=== PATIENT | female | born 1945 | race Caucasian/White ===

== ENCOUNTER 2021-05-14 16:24 | Inpatient (IN) | payer OTHER ==
[~2021-05-14] VITALS: Ht 167.6 cm; Wt 99.7 kg
[2021-05-14 18:09] LABS: Basophils # (auto) 0.1 10 ^3/uL (0-0.2); Basophils % (auto) 0.9 % (0.0-2.0); Eosinophils # (auto) 0.2 10 ^3/uL (0-0.8); Hematocrit 43.7 % (36.0-46.0); Hemoglobin 14.4 g/dL (12.2-16.2); Lymphocytes # (auto) 1.8 10 ^3/uL (0.4-5.4); Lymphocytes % (auto) 23.6 % (10.0-50.0); Mean Corpuscular Hemoglobin 31.5 pg (28.0-32.0); Mean Corpuscular Volume 95.6 fL (80.0-100.0); Monocytes # (auto) 0.9 10 ^3/uL (0-1.3); Neutrophils # (auto) 4.6 10 ^3/uL (1.6-8.6); Neutrophils % (auto) 61.5 % (37.0-80.0); Nucleated Red Blood Cells % 0.2 %; Red Blood Cells 4.57 10^6/uL (4.0-5.20); Red Cell Distribution Width 13.4 % (11.8-14.3); White Blood Cell 7.5 10^3/uL (4.4-10.8)
[2021-05-14 18:33] LABS: Albumin 3.6 g/dL (3.4-5.0); BUN/Creatinine Ratio 21.4; Calcium 9.7 mg/dL (8.5-10.1); Potassium 4.8 mmol/L (3.5-5.1)
[2021-05-14 18:36] LABS: Bilirubin, Total 0.9 mg/dL (0.2-1.0); Total Protein 6.9 g/dL (6.4-8.2)
[2021-05-14] MEDS ORDERED: ONDANSETRON HCL 4 MG/2 ML VIAL IV PRN (21:30)
[2021-05-14] MEDS ORDERED: NITROGLYCERIN 0.4 MG SL TAB SL PRN (21:30)
[2021-05-14] MEDS ORDERED: SOD CHL 0.45% 1,000 ML IV ONE (21:30)
[2021-05-14] MEDS ORDERED: MORPHINE SULFATE INJECTION 2 MG/ML SYRG IV PRN (21:30)
[2021-05-14 23:30] VITALS: BP 122/59
[2021-05-15] MEDS: MORPHINE SULFATE INJECTION 2 MG/ML SYRG IV PRN ×4 (01:59→21:27)
[2021-05-15 05:50] VITALS: BP 145/75
[2021-05-15] MEDS ORDERED: ATOR20TA PO (05:56)
[2021-05-15 06:23] LABS: Basophils # (auto) 0.1 10 ^3/uL (0-0.2); Basophils % (auto) 0.7 % (0.0-2.0); Eosinophils # (auto) 0.2 10 ^3/uL (0-0.8); Eosinophils % (auto) 2.4 % (0.0-7.0); Hematocrit 40.4 % (36.0-46.0); Hemoglobin 13.5 g/dL (12.2-16.2); Lymphocytes # (auto) 1.8 10 ^3/uL (0.4-5.4); Lymphocytes % (auto) 23.6 % (10.0-50.0); Mean Corpuscular Hgb Conc. 33.5 g/dL (32.0-36.0); Mean Corpuscular Volume 95.5 fL (80.0-100.0); Monocytes % (auto) 12.7 % (0.0-12.0); Neutrophils # (auto) 4.7 10 ^3/uL (1.6-8.6); Neutrophils % (auto) 60.6 % (37.0-80.0); Red Blood Cells 4.23 10^6/uL (4.0-5.20); Red Cell Distribution Width 13.3 % (11.8-14.3); White Blood Cell 7.7 10^3/uL (4.4-10.8)
[2021-05-15 06:50] LABS: INR 1.03 (0.9-1.15)
[2021-05-15 07:14] LABS: Potassium 4.1 mmol/L (3.5-5.1)
[2021-05-15 07:24] LABS: Albumin 3.1 g/dL (3.4-5.0); BUN/Creatinine Ratio 26.9; Bilirubin, Total 0.7 mg/dL (0.2-1.0); Calcium 9.4 mg/dL (8.5-10.1); Total Protein 6.1 g/dL (6.4-8.2)
[2021-05-15 09:07] VITALS: BP 132/76
[2021-05-15] MEDS: ENOXAPARIN SOD 40 MG/0.4 ML SYRINGE SC SCH (10:00)
[2021-05-15 12:34] VITALS: BP 129/77
[2021-05-15] MEDS: ceFAZolin 2 GM in D5W 5% 100 ML IV SCH ×2 (15:10→21:26)
[2021-05-15 17:22] VITALS: BP 107/62
[2021-05-15] MEDS: SODIUM CHLORIDE 0.9% 1,000 ML IV SCH (19:30)
[2021-05-15 21:30] VITALS: BP 137/87
[2021-05-16] VITALS (13 sets, daily range): BP systolic 116–154; BP diastolic 64–88
[2021-05-16] MEDS: SODIUM CHLORIDE 0.9% 1,000 ML IV SCH (00:54)
[2021-05-16] MEDS: ceFAZolin 2 GM in D5W 5% 100 ML IV SCH ×3 (04:46→21:39)
[2021-05-16] MEDS: MORPHINE SULFATE INJECTION 2 MG/ML SYRG IV PRN (04:47)
[2021-05-16] MEDS ORDERED: fentaNYL CITRATE 100 MCG/2 ML VL ONE (09:54)
[2021-05-16] MEDS ORDERED: MIDAZOLAM HCL 2MG/2ML 2ml VIAL (1mg/ml) ONE ×2 (09:54→11:11)
[2021-05-16] MEDS ORDERED: GLYCOPYRROLATE 0.2 MG/ML 1ML VIAL ONE (09:55)
[2021-05-16] MEDS ORDERED: ePHEDrine SULFATE 50 MG/ML AMP ONE (09:55)
[2021-05-16] MEDS ORDERED: ONDANSETRON HCL 4 MG/2 ML VIAL ONE (09:55)
[2021-05-16] MEDS ORDERED: PROPOFOL 10 MG/ML 20 ML IV ONE (09:55)
[2021-05-16] MEDS: ENOXAPARIN SOD 40 MG/0.4 ML SYRINGE SC SCH (10:00)
[2021-05-16] MEDS ORDERED: HYDROCORTISONE SOD SUCC 100 MG/2ML INJ VIAL ONE (10:31)
[2021-05-16] MEDS ORDERED: MORPHINE SULF PF 2 MG/2 ML SYRG ONE (10:31)
[2021-05-16] MEDS ORDERED: TETRACAINE 1% INJ 2 ML VIAL IJ ONE (10:37)
[2021-05-16] MEDS ORDERED: KETOROLAC TROMETH 30 MG/ML 1ML VIAL IV ONE (12:15)
[2021-05-16] MEDS ORDERED: KETOROLAC TROMETH 30 MG/ML 1ML VIAL IV PRN (12:15)
[2021-05-16] MEDS ORDERED: diphenhdrAMINE HCL 50 MG/1 ML VL IV PRN (12:15)
[2021-05-16] MEDS ORDERED: DexAMETHasone SOD PHOS 10MG/1ML VIAL INJ IV PRN (12:15)
[2021-05-16] MEDS ORDERED: ONDANSETRON HCL 4 MG/2 ML VIAL IV PRN ×2 (12:15)
[2021-05-16] MEDS ORDERED: NALOXONE HCL 0.4 MG/ML VIAL IV PRN (12:15)
[2021-05-16] MEDS: hydrALAZINE HCL 20 MG/ML VL IV PRN (13:00)
[2021-05-16] MEDS: HYDROcodone-ACET 5/325MG TAB PO PRN (23:43)
[2021-05-17] VITALS (13 sets, daily range): BP systolic 120–182; BP diastolic 69–97
[2021-05-17] MEDS: hydrALAZINE HCL 20 MG/ML VL IV PRN (04:10)
[2021-05-17] MEDS: HYDROcodone-ACET 5/325MG TAB PO PRN (04:13)
[2021-05-17] MEDS: ceFAZolin 2 GM in D5W 5% 100 ML IV SCH ×2 (05:20→14:00)
[2021-05-17 10:11] LABS: Basophils # (auto) 0 10 ^3/uL (0-0.2); Basophils % (auto) 0.2 % (0.0-2.0); Eosinophils # (auto) 0 10 ^3/uL (0-0.8); Eosinophils % (auto) 0.2 % (0.0-7.0); Hemoglobin 13.2 g/dL (12.2-16.2); Lymphocytes % (auto) 7.1 % (10.0-50.0); Mean Corpuscular Hemoglobin 31.2 pg (28.0-32.0); Mean Corpuscular Hgb Conc. 32.3 g/dL (32.0-36.0); Mean Corpuscular Volume 96.7 fL (80.0-100.0); Monocytes # (auto) 1.3 10 ^3/uL (0-1.3); Monocytes % (auto) 9.8 % (0.0-12.0); Neutrophils # (auto) 11.4 10 ^3/uL (1.6-8.6); Neutrophils % (auto) 82.7 % (37.0-80.0); Red Blood Cells 4.24 10^6/uL (4.0-5.20); Red Cell Distribution Width 13.6 % (11.8-14.3); White Blood Cell 13.8 10^3/uL (4.4-10.8)
[2021-05-17 10:30] LABS: Albumin 3.2 g/dL (3.4-5.0); Calcium 8.8 mg/dL (8.5-10.1); Potassium 4.3 mmol/L (3.5-5.1)
[2021-05-17 10:33] LABS: BUN/Creatinine Ratio 24.3; Bilirubin, Total 0.5 mg/dL (0.2-1.0); Total Protein 6.3 g/dL (6.4-8.2)
[2021-05-17] MEDS: MORPHINE SULFATE INJECTION 2 MG/ML SYRG IV PRN ×2 (10:41→18:33)
[2021-05-17] MEDS ORDERED: ENO40SY SC (12:14)
[2021-05-17] MEDS ORDERED: AMOX500T86 PO (12:15)
[2021-05-17] MEDS: ENOXAPARIN SOD 40 MG/0.4 ML SYRINGE SC SCH (14:40)
[2021-05-17] MEDS ORDERED: amLODIPine BESYLATE 5 MG TAB PO ONE (15:15)
[2021-05-17] MEDS ORDERED: METOCLOPRAMIDE HCL 5MG/ml INJ 2ml VIAL IV ONE (15:30)
[2021-05-17] MEDS ORDERED: ENALAPRILAT 1.25 MG/ML-1ML VIAL IV ONE (16:45)
[2021-05-17] MEDS ORDERED: cloNIDine HCL 0.1 MG TAB PO SCH (22:00)
[2021-05-18] MEDS ORDERED: amLODIPine BESYLATE 5 MG TAB PO SCH (10:00)
== END 2021-05-17 19:21 | DRG 494 ==
LOC: EDUNIT# 16:24 → ER 16:24 → EDBD 16:24 → OVERFLOW 21:17 → OBSVTOIN 21:17 → WEST WING 23:20
PROVIDERS: ADMIT Internal Medicine; ATTEND Internal Medicine
PROC: BQ1H1ZZ Fluoroscopy of Left Ankle using Low Osmolar Contrast (ICD-10-PCS; 2021-05-16)
PROC: 0QSK04Z Reposition Left Fibula with Internal Fixation Device, Open Approach (ICD-10-PCS; principal; 2021-05-16 10:36)
DX: S82.852A Displaced trimalleolar fracture of left lower leg, initial encounter for closed fracture (principal); I10 Essential (primary) hypertension; E78.5 Hyperlipidemia, unspecified; M06.9 Rheumatoid arthritis, unspecified; Z96.652 Presence of left artificial knee joint; I48.91 Unspecified atrial fibrillation; Z20.822 Contact with and (suspected) exposure to COVID-19; W18.39XA Other fall on same level, initial encounter; Z82.49 Family history of ischemic heart disease and other diseases of the circulatory system; Z83.3 Family history of diabetes mellitus; Y93.89 Activity, other specified; Y92.89 Other specified places as the place of occurrence of the external cause; Y99.8 Other external cause status
CPT/HCPCS: 36415; 71045; 73610; 74018; 76000; 80053; 84702; 85025; 85610; 86850; 86900; 86901; 87426; 93005; 93306; 97163; G0378; J0690; J2250; J2405; J2704; J7060